=== PATIENT | female | born 1990 | race Caucasian/White ===

== ENCOUNTER 2020-06-04 10:16 | Inpatient (IN) | payer BC ==
[2020-06-04] MEDS ORDERED: CARBOPROST TROME 250 MCG/ML IM PRN (11:19)
[2020-06-04] MEDS ORDERED: METHYLERGONOVINE 0.2MG/ML AMP IM PRN (11:19)
[2020-06-04] MEDS ORDERED: PROMETHAZINE INJ 25 MG/ML AMP IM PRN (11:19)
[2020-06-04] MEDS ORDERED: BUTORPHANOL 1 MG/ML INJ IV PRN (11:19)
[2020-06-04] MEDS ORDERED: Ringers Lactate 1,000 ML IV PRN (11:19)
[2020-06-04] MEDS ORDERED: LIDOCAINE 1% MPF 30 ML VIAL SQ ONE (11:31)
[2020-06-04] MEDS ORDERED: OXYTOCIN/LR 20 UNIT/1,000 ML BAG IV ONE (11:45)
[2020-06-04] MEDS ORDERED: Ringers Lactate 2,000 ML IV ONE (11:46)
[2020-06-04 11:50] LABS: Absolute Lymphocytes (CBC) 1.3 K/uL (0.7-4.9); Basophils % 0.3 % (0-1.3); Hematocrit 37.2 % (36.0-45.0); Lymphocytes % 11.8 % (15.3-44.8); MPV 11.9 fL (7.6-11.3); RBC Red Blood Cell Count 4.49 M/uL (3.86-4.86)
[2020-06-04] MEDS ORDERED: OXYTOCIN/LR 20 UNIT/1,000 ML BAG IV SCH (12:00)
[2020-06-04 14:56] VITALS: BMI 35.8
[2020-06-04] MEDS ORDERED: ROPIVACAINE HCL 100 ML IV PRN (19:17)
[2020-06-04] MEDS ORDERED: FENTANYL CITR 100 MCG/2 ML IV ONE (19:18)
[2020-06-04] MEDS ORDERED: ROPIVACAINE HCL 0.2% 20ML AMP SQ ONE (19:18)
[2020-06-04] MEDS ORDERED: ROPIVACAINE HCL 100 ML IV ONE (19:44)
[2020-06-04] MEDS ORDERED: ROPIVACAINE HCL 20 ML ONE (19:44)
[2020-06-04] MEDS ORDERED: FENTANYL CITR 100 MCG/2 ML ONE (19:44)
--- NOTE | 2020-06-04 20:01 | PN ---
The patient is ines regularly. She is on 14 milliunits of Pitocin and was checked 2 hours ago and was 4 cm, is in the rocking chair right now. We will plan on checking her again around 5 p.m. We will continue to increase the Pitocin until we get 20 milliunits, but if we do not make any progre ss, we will not go up to 24 total. We will see of course what kind of progress we are making in the next couple of hours. Still does not request any kind of medications. Doing quite well. WALTER/XI Voice ID: [id number] Report ID: [id number]
--- NOTE | 2020-06-05 01:33 | PN ---
The patient is now approximately 7 cm, 80% to 90% effaced, 0 station, ines regularly. She has had her epidural at 12, set at 12 maintenance at this point. She can move her legs. She is tall wo man. We will leave it at 12 right now, but when begin pushing, will probably move it back to 10 or e cassandra 8. We would anticipate more rapid progress from this point forward. Pitocin was changed out. S he is now on 12 milliunits. We will pull back up steadily to 20 where she was before. Full discussi on with the patient and at this point. WALTER/XI Voice ID: [id number] Report ID: [id number]
[2020-06-05] MEDS ORDERED: CEFAZOLIN/SWI 2gm 2 GM/20 ML SYR ONE ×2 (02:06→13:13)
[2020-06-05] MEDS ORDERED: METOCLOPRAMIDE 10 MG/2mL INJ ONE (03:42)
[2020-06-05] MEDS ORDERED: NA CIT/CITRIC AC 30 ML ORAL UDC ONE (03:42)
[2020-06-05] MEDS ORDERED: FAMOTIDINE 20 MG/2 ML VIAL IV ONE (03:43)
[2020-06-05] MEDS ORDERED: CEFAZOLIN/SWI 1gm 2 GM/20 ML SYR ONE (03:44)
[2020-06-05] MEDS ORDERED: CARBOPROST TROME 250 MCG/ML IM ONE (03:45)
[2020-06-05] MEDS ORDERED: METHYLERGONOVINE 0.2MG/ML AMP IM ONE (03:45)
[2020-06-05] MEDS ORDERED: MORPHINE SULFATE/PF 1 MG/ML (10 ML AMP) ONE (04:03)
[2020-06-05] MEDS ORDERED: OXYTOCIN 10 UNIT/ML ML IV ONE ×2 (04:03→04:04)
[2020-06-05] MEDS ORDERED: LIDOCAINE 2% W/EPI 1:200,000 MPF 20 ML VIAL IM ONE (04:04)
[2020-06-05] MEDS ORDERED: NS 0.9% VIAL 10 ML ONE (04:16)
--- NOTE | 2020-06-05 04:44 | PN ---
The patient is on 24 milliunits of Pitocin, ines every 60-90 seconds. Baby looks good. She h as been 8 cm since 11 p.m. She was just catheterized, 500 cc of urine obtained. She has never had a ny back pain. At this point, we decided to wait at least another hour and see if any progress is mad e, but she knows if she goes 3 hours without cervical change after reaching 8 cm and having contracti ons this frequently and this firm, they will probably proceed with the . WALTER/XI Voice ID: [id number] Report ID: [id number]
[2020-06-05] MEDS ORDERED: KETOROLAC 30 MG/ML INJ IM PRN (04:56)
[2020-06-05] MEDS ORDERED: ONDANSETRON 4 MG/2 ML VIAL IV PRN (04:56)
[2020-06-05] MEDS ORDERED: KETOROLAC 30 MG/ML INJ IV PRN (04:56)
[2020-06-05] MEDS ORDERED: ONDANSETRON 4 MG (ODT) TAB PO PRN (04:56)
[2020-06-05] MEDS ORDERED: BISACODYL 10 MG RECTAL SUPP RECT PRN (04:56)
[2020-06-05] MEDS ORDERED: Oxycodone HCl/Acetaminophen 1 TAB TAB PO PRN ×2 (04:56)
[2020-06-05] MEDS ORDERED: METHYLERGONOVINE 0.2 MG TAB PO PRN (04:56)
[2020-06-05] MEDS ORDERED: DIPHENHYDRAMINE 25 MG TAB/CAP PO PRN (04:56)
[2020-06-05] MEDS ORDERED: ACETAMINOPHEN 500 MG TAB PO PRN ×2 (04:56)
[2020-06-05] MEDS ORDERED: OXYTOCIN/LR 20 UNIT/1,000 ML BAG IV SCH (05:00)
[2020-06-05] MEDS ORDERED: D5LR 1,000 ML with OXYTOCIN 20 UNIT IV SCH ×2 (05:00)
--- NOTE | 2020-06-05 05:01 | PN ---
The patient has been pushing for 2 hours with no progress. Baby has not come down. She still has an anterior lip of cervix. Baby is starting to show a tachycardia, but still has good kzqs-sd-zfjs ramesh iability. Blood pressure is starting to rise on the patient, but not any signs of preeclampsia. The patient has already been given 2 g of Ancef secondary to prolonged rupture of membranes. Discussion with patient and , we decided to proceed with . Infection; blood loss; anesthetic co mplications; injury to bladder, bowel, ureter; postop complications; clots in legs; pneumonia discuss ed. The patient knows fully well does not constitute all the possible problems that could occur duri ng or following surgery. She has been catheterized at this time. Pitocin has been discontinued. We given her additional 2 g of Ancef. Anesthesia and operative crew have been called and we will proce ed with expeditious . WALTER/XI Voice ID: [id number] Report ID: [id number]
--- NOTE | 2020-06-05 05:37 | PN ---
The patient has not made any definite progress. The baby is still about a +1 station. FHTs are norm al reactive. The patient wished to continue pushing. She knows that if we do not get progress withi n the next 0.5 hour to an hour, we would still consider at that point. WALTER/XI Voice ID: [id number] Report ID: [id number]
[2020-06-05] MEDS ORDERED: PROMETHAZINE INJ 25 MG/ML AMP IV PRN (06:52)
--- NOTE | 2020-06-05 10:31 | OP ---
Surgeon: Jose Alejandro Lantigua MD Bottom Steep Tender: Bottom Steep Tender Surgeon: Ed Santos MD. Anesthesiologist: Dr. Willson. Indications For Procedure: This is a 30-year-old primigravida 38 weeks 6 days, experienced spontaneo us rupture of membranes, came to Labor and Delivery, was thought not to have rupture of membranes, ca me to my office, had definite rupture of membranes since the labor and delivery. After approximately 28 hours of rupture of membranes, given 2 g of Ancef prophylaxis, although at no time the baby showe d any signs of amnionitis. No tachycardia until later in the labor. No fever. No unusual discharge . No uterine tenderness. The patient progressed to 5 cm, at which time she requested and received e pidural anesthesia. From that point on, made extremely slow progress. She stayed 8 cm for 2-3 hours and then went to 9.5, tried to push past the cervix. The small lip of the cervix never retracted an d she pushed for 2 hours with no success. At this point, it was decided to proceed with sec tion. Infection; blood loss; anesthetic complications; injury to bladder, bowel, ureter; postoperati ve complications, clots in legs and pneumonia were discussed. The patient knows fully well this does not constitute all the possible problems that could occur during or following surgery. Procedure In Detail: After time-out, prepping and draping was performed. A Pfannenstiel incision wa s created and the incision was carried to the fascia. The fascia was incised and the incision was ca rried transversely bilaterally. Anterior fascial plane was developed with both blunt and sharp disse ctions. The underlying rectus muscle and peritoneum entered bluntly. Low transverse uteri ne incision was created after the lower bladder flap developed. 9-pound 3-ounce female was delivered through the incision without difficulty. Apgars 9 and 9. Cord blood specimen obtained. Placenta r emoved manually. Uterus cleared of clot and blood and exteriorized, mild hypotonus. 0.2 mg of Methe rgine as well as IV drip Pitocin and massage. Estimated blood loss 1000 cc. Uterus closed with a ru nning locked stitch of 1 chromic followed by imbricating stitch of 1 chromic. Small fibroid was note d on the posterior fundal area about 1 cm sessile. Gutters cleared of clot and blood. Uterus was re placed in the peritoneal cavity. Inspection of suture line showed no further bleeding. Muscles were reapproximated with 2 stitches of 0 Vicryl. The fascia was closed with 1 PDS, running from either a ngle to the midline. Subcutaneous tissue was closed with 2-0 plain and then dav for the skin. T he patient tolerated all procedures well, transferred back to her room in good condition. Final Diagnoses: Term intrauterine , prolonged rupture of membranes, fair to progress in la bor, primary section, mild uterine hypertonus, epidural anesthesia. Anesthesia: Epidural anesthesia. WALTER/XI Voice ID: [id number] Report ID: [id number]
--- NOTE | 2020-06-05 10:56 | PN ---
Postop patient has done well thus far. Output is much better. Lochia is normal. The patient is com pletely alert. Pulse is still little high but coming down. We of course will check H and H later to day, but right now she looks quite stable. Full postop talk given. WALTER/XI Voice ID: [id number] Report ID: [id number]
--- NOTE | 2020-06-05 10:58 | PREOPHP ---
Date of Admission: 06/04/2020 A 30-year-old primigravida 38 weeks 6 days, came to Labor and Delivery last night for assessment for possible rupture of membranes, was thought to be negative at that point. Came to my office this morn ing as definite membrane rupture. Clear fluid. No odor. No uterine tenderness. No fever. Sent to Labor and Delivery. Baby looks good. No tachycardia. Again, no signs of amnionitis at this point. We will begin light Pitocin augmentation. She is ines every 2-3 minutes but is completely u naware of these contractions. She was 3.5 cm in the office, 60% effaced, vertex, well applied at -1 station. I think that we need to get her into good labor, it should not take too long. Thorough lab or talk given. Rh positive, immune to rubella, negative beta strep screen. COVID status unknown. WALTER/XI Voice ID: [id number]
[2020-06-05] MEDS ORDERED: CEFAZOLIN 2 GM in NA CHLORIDE 0.9% 100 ML IVPB ONE (13:00)
[2020-06-05] MEDS: Ringers Lactate 1,000 ML IV SCH (19:23)
[2020-06-06 01:21] LABS: RPR (Rapid Plasma Reagin) NON-REACT (NON-REACT)
[2020-06-06] MEDS ORDERED: FENTANYL CITR 100 MCG/2 ML ONE (03:32)
[2020-06-06] MEDS ORDERED: ROPIVACAINE HCL 20 ML ONE (03:32)
[2020-06-06] MEDS: Ringers Lactate 1,000 ML IV SCH (03:39)
[2020-06-06] MEDS ORDERED: MAGNESIUM HYDROXIDE 8% 30 ML PO PRN (04:56)
--- NOTE | 2020-06-06 08:09 | PN ---
Postoperatively, the patient has done quite well. The patient states that she thinks she has a howie l pulse of about 90 prior to admission. Her pulses are still in the 100 to 110 range. She has ambul ated though without any type of problems. H and H showed no significant drop other than that anticip ated. We will discontinue her Mlalory this morning. She knows because of the prolonged pushing that s he needs to be very watchful about bladder atony and we will reinsert the Mallory if she cannot void wi thin 4 hours. We will keep the IV until later in the day when we are convinced that her pulse is not secondary to excessive blood loss. Full postop talk given to the patient, we will go over it again tomorrow. If she continues to do well, will need to be dismissed tomorrow. WALTER/XI Voice ID: [id number] Report ID: [id number]
[2020-06-06] MEDS: IBUPROFEN 200 MG TAB PO PRN ×2 (09:04→21:55)
[2020-06-06 18:47] LABS: HBsAG Nonreactive (Nonreactive)
[2020-06-07] MEDS: IBUPROFEN 200 MG TAB PO PRN (07:28)
[2020-06-07 07:38] VITALS: BP 131/76; TEMP 97.8
[2020-06-07] MEDS ORDERED: IBUPROFEN 600 MG TAB ONE (07:41)
--- NOTE | 2020-06-07 07:55 | DS ---
A 30-year-old primigravida, 39 weeks' gestation, primary section for failure to progress in labor. Delivered of a 9 pounds 3 ounces female, Apgars 9 and 9. Epidural anesthesia. Mild uterine hypotonus. 1000 cc estimated blood loss. Ancef for prophylaxis pre and postop. Rh positive, immune to rubella. Negative COVID. Negative beta strep. Postoperatively, the patient had tachycardia, ev en before the surgery, but now is completely normal. Pulse ranged 60 to 70. Lochia has been normal. No signs of any significant blood loss. She will be dismissed to return to my office next week for staple removal. To report any temperature elevation of 100 degrees or greater, severe pain, heavy b leeding, or any other type of abnormalities. Dismissed with tramadol for analgesia, although she may elect to take Motrin instead. Final Diagnoses: Term intrauterine , 39 weeks, failure to progress in labor, mild uterine h ypotonus. WALTER/XI Voice ID: [id number] Report ID: [id number]
== END 2020-06-07 09:50 | disposition home or self-care (01) | DRG 788 ==
LOC: 2ND-WC 10:16
PROVIDERS: ADMIT Specialist; ATTEND Specialist
PROC: 10D00Z1 Extraction of Products of Conception, Low, Open Approach (ICD-10-PCS; principal; 2020-06-05 04:00)
DX: O62.0 Primary inadequate contractions (principal); O62.4 Hypertonic, incoordinate, and prolonged uterine contractions; D25.9 Leiomyoma of uterus, unspecified; Z03.818 Encounter for observation for suspected exposure to other biological agents ruled out; Z3A.38 38 weeks gestation of pregnancy; Z37.0 Single live birth
CPT/HCPCS: 36415; 85014; 85025; 86592; 86901; 87340; 88307; J0690; J2210; J2590; J2765; J2795; J3010; J7120; J7121; U0003

== ENCOUNTER 2022-05-19 04:25 | Inpatient (IN) | payer BC ==
--- NOTE | 2022-05-15 13:45 | PREOPHP ---
Date of Admission: 05/19/2022 History Of Present Illness: This is a 32-year-old, 2, para 1, for repeat section. Infection; blood loss; anesthetic complications; injury to bladder, ureter discussed. Patient knows fully well this does not constitute all the possible problems that could occur during or following friedman rgery. Mother with hypertension. Grandmother with cancer, site undetermined. Previous sec tion. Allergies: NO ALLERGIES. Social History: No smoking. Physical Examination: HEENT: Clear. Pupils are equal, round, reactive to light and accommodation. Conjunctivae well perf used. No oral, lingual, or buccal lesions. Chest and Lungs: Clear. Heart: Without murmurs, thrills, heaves, or rubs. Abdomen: Term size. Extremities: Clear without edema, cyanosis, or clubbing. Assessment And Plan: Baby is vertex, still -2 station. Cervix is 1.5 cm, 40% effaced. We will proc eed with repeat section on Thursday. If she goes in labor this weekend, she will proceed to [facility] and Delivery and we will decide at that point what to do. WALTER/XI Voice ID: [id number]
[2022-05-18 12:41] LABS: Absolute Lymphocytes (CBC) 1.4 K/uL (0.7-4.9); Hematocrit 39.1 % (36.0-45.0); Lymphocytes % 21.2 % (15.3-44.8); MCV 83.1 fL (80-100); MPV 10.4 fL (7.6-11.3); RBC Red Blood Cell Count 4.71 M/uL (3.86-4.86)
[2022-05-18 12:50] LABS: Protime INR 0.91
[~2022-05-19 04:25] MED LIST: CEFAZOLIN 1 GM in NA CHLORIDE 0.9% 50 ML IVPB SCH; METOCLOPRAMIDE 10 MG/2mL INJ IV SCH; Ringers Lactate 1,000 ML IV PRN; Ringers Lactate 1,000 ML IV SCH
[2022-05-19] MEDS ORDERED: CEFAZOLIN SODIUM 2 GM in NA CHLORIDE 0.9% 100 ML IVPB SCH (05:00)
[2022-05-19 05:33] VITALS: BMI 38.0
[2022-05-19] MEDS ORDERED: CEFAZOLIN SODIUM 1 GM/VIAL ONE (05:48)
[2022-05-19] MEDS ORDERED: NA CIT/CITRIC AC 30 ML ORAL UDC PO ONE (06:00)
[2022-05-19] MEDS ORDERED: FAMOTIDINE 20 MG/2 ML VIAL IV ONE (06:00)
[2022-05-19 06:01] VITALS: O2SAT 99
[2022-05-19] MEDS ORDERED: CEFAZOLIN 2 GM IN 0.9% NACL 2 GM/100 ML BAG ONE (07:09)
[2022-05-19] MEDS ORDERED: CARBOPROST TROME 250 MCG/ML IM ONE (07:18)
[2022-05-19] MEDS ORDERED: METHYLERGONOVINE 0.2MG/ML AMP IM ONE (07:18)
[2022-05-19] MEDS ORDERED: BUPIVACAINE 0.75% (PF) 2 ML SP ONE (07:48)
[2022-05-19] MEDS ORDERED: LIDOCAINE 1% MPF 5 ML VIAL ONE (07:48)
[2022-05-19] MEDS ORDERED: EPHEDRINE SULF 50 MG/ML VIAL ONE (07:48)
[2022-05-19] MEDS ORDERED: NS 0.9% VIAL 10 ML ONE (07:48)
[2022-05-19] MEDS ORDERED: MORPHINE SULFATE/PF 1 MG/ML (10 ML AMP) ONE (07:48)
[2022-05-19] MEDS ORDERED: ONDANSETRON 4 MG/2 ML VIAL ONE (07:48)
[2022-05-19] MEDS ORDERED: OXYTOCIN 10 UNIT/ML ML ONE (07:48)
[2022-05-19 08:01] LABS: Specific Gravity > 1.030 (1.005-1.030); Urine Bilirubin Negative (Negative); Urine Blood Negative (Negative); Urine Clarity Clear (Clear); Urine Color Yellow (Yellow); Urine Glucose Negative (Negative); Urine pH 5.5 (5.0-7.0)
[2022-05-19 08:02] LABS: Urine Protein Negative (Negative); Urine Urobilinogen 0.2 mg/dL (0.2-1.0)
[2022-05-19 08:03] LABS: Urine Bacteria 20-50 /HPF (<20); Urine RBC <5 /HPF (None Seen)
--- NOTE | 2022-05-19 08:30 | OP ---
Surgeon: Jose Alejandro Lantigua MD Software Engineering Supervisor: Dr. Storey. Anesthesiologist: Dr. Perez. Indication: This is a 32-year-old, 2, para 1, repeat section, at 39 weeks. Full pr eoperative counseling concerning procedure and possible complications including infection; blood loss ; anesthetic complications; injury to bladder, bowel, ureter; postoperative complications; clots in l egs; and pneumonia. The patient knows fully this does not constitute all the possible problems that could occur during or following surgery. Anesthesia: Spinal block anesthesia. Procedure In Detail: After adequate general anesthesia and prepping and draping, time-out was perfor med. A Pfannenstiel incision was created over the previous incision site. The incision was carried to the fascia. The fascia was incised and the incision carried transversely. Anterior fascial plane was developed with both blunt and sharp dissection. A defect in the peritoneum was seen and entered . There were noted to be significant scarring on the anterior portion of the uterus. Careful dissec tion was done until full resolution of the adhesions was obtained. At this point, a low transverse u terine incision was created. An 11-pound female was delivered without difficulties, Apgars 9 and 9. Cord blood specimen obtained. Placenta removed manually. 0.2 mg of Methergine was administered pro phylactically and this resulted in good uterine tonus and the estimated total blood loss during the p rocedure 700 cc. Cervical os dilated with ring clamp. Uterus closed with a running locked stitch of 1 chromic. Multiple areas of fulguration were performed on the anterior cervix where the previous a dhesions were seen. There was noted to be a posterior right fibroid about size of an acorn. This wa s a very superficial. I do not think it will cause her problems in the future. This was discussed w ith the patient. Gutters clear of clot and blood. Uterus replaced in the peritoneal cavity. No fur ther bleeding seen. Rectus muscles were reapproximated using 0 Vicryl 2 interrupted sutures. The fa scia was closed with 1 PDS running from either angle to the midline and subcutaneous tissue closed wi th 2-0 plain. Gaurav used for the skin. The patient been given 2 g of Ancef prophylactically. Raphael erated all procedures well and was transferred back to her room in good condition. Final Diagnoses: Term intrauterine at 39 weeks, repeat section, macrosomia, spinal block anesthesia, anterior uterine scarring. WALTER/XI Voice ID: [id number] Report ID: [id number]
[2022-05-19] MEDS ORDERED: Oxycodone HCl/Acetaminophen 1 TAB TAB PO PRN ×2 (09:25→09:34)
[2022-05-19] MEDS ORDERED: ONDANSETRON 4 MG/2 ML VIAL IV PRN (09:25)
[2022-05-19] MEDS ORDERED: DOCUSATE NA/SENNA CONC 1 TAB PO PRN (09:25)
[2022-05-19] MEDS ORDERED: KETOROLAC 30 MG/ML INJ IV PRN (09:33)
[2022-05-19] MEDS ORDERED: D5LR 1,000 ML with OXYTOCIN 20 UNIT IV SCH ×2 (10:00)
[2022-05-19] MEDS ORDERED: OXYTOCIN/LR 20 UNIT/1,000 ML BAG IV SCH (10:00)
[2022-05-19] MEDS ORDERED: PROMETHAZINE INJ 25 MG/ML AMP IV PRN (10:50)
[2022-05-19] MEDS ORDERED: PROMETHAZINE INJ 25 MG/ML AMP ONE (11:01)
[2022-05-19] MEDS ORDERED: CEFAZOLIN 2 GM IN 0.9% NACL 2 GM/100 ML BAG IVPB ONE (16:00)
[2022-05-19] MEDS ORDERED: Ringers Lactate 1,000 ML IV ONE (18:20)
[2022-05-20] MEDS: IBUPROFEN 600 MG TAB PO PRN (16:42)
--- NOTE | 2022-05-21 05:28 | DS ---
Hospital Course: Patient underwent repeat section at 39 weeks. Spinal block anesthesia. D elivery of an 11-pound female. Estimated blood loss at the time of surgery 700 cc. Pre and postop h ematocrit demonstrated minimal change. This morning, the patient is alert. Lochia is normal. We wi ll discontinue her Mallory and IV, begin ambulation, begin p.o. intake. She has taken nothing for pain at this point. She will either go home this afternoon or tomorrow morning. To report back to [facility] in 1 week for followup, to report any temperature elevation of 100 degrees or greater severe dominic n, heavy bleeding, or any other type of abnormalities. Rh positive, immune to Rubella. Negative str ep. The patient has no post spinal block problems, is doing exceedingly well. At time of surgery, w as noted to have anterior adhesions. This was discussed with the patient. She also has a very small posterior fibroid on the patient's left posterior area, possibly 2 cm superficial. I doubt that thi s will cause her problems in the future. Final Diagnoses: 1.Term intrauterine . 2.Repeat section. 3. macrosomia. 4.Spinal block anesthesia. 5.Anterior uterine adhesions. WALTER/XI Voice ID: [id number] Report ID: [id number]
[2022-05-21] MEDS: IBUPROFEN 600 MG TAB PO PRN (08:45)
[2022-05-21 09:33] VITALS: BP 137/86; TEMP 97.1
--- NOTE | 2022-05-26 08:34 | P.OP ---
Aircraft Navigator: Kwaku Storey (Assist Dr. Lantigua) Preoperative diagnosis: 39 Week Repeat Postoperative diagnosis: 39 Week Repeat Primary procedure: Assist Repeat Anesthesia: Spinal Estimated blood loss: 700 Specimen: Placenta Findings: 39 Week Repeat Complications: None Transferred to: Recovery Room Condition: Good
== END 2022-05-21 10:15 | disposition home or self-care (01) | DRG 788 ==
LOC: 2ND-WC 04:25
PROVIDERS: ADMIT Specialist; ATTEND Specialist
PROC: 10D00Z1 Extraction of Products of Conception, Low, Open Approach (ICD-10-PCS; principal; 2022-05-19 07:30)
DX: O34.211 Maternal care for low transverse scar from previous cesarean delivery (principal); O36.63X0 Maternal care for excessive fetal growth, third trimester, not applicable or unspecified; N85.8 Other specified noninflammatory disorders of uterus; Z3A.39 39 weeks gestation of pregnancy; Z37.0 Single live birth; Z20.822 Contact with and (suspected) exposure to COVID-19
CPT/HCPCS: 36415; 81001; 85014; 85025; 85610; 85730; 86850; 86900; 86901; 87086; 87088; 88307; J0690; J2210; J2405; J2550; J2590; J2765; J7120; J7121; U0003